=== PATIENT | male | born 1965 | race Caucasian/White ===

== ENCOUNTER 2016-12-04 20:57 | Emergency (ER) | payer OTHER ==
[~2016-12-04] VITALS: Ht 165.1 cm; Wt 102.5 kg
[2016-12-04 21:06] VITALS: Ht 165.1 cm; Wt 102.5 kg
[2016-12-04] MEDS ORDERED: IBUP-1542 PO (22:06)
--- NOTE | 2016-12-04 23:07 | ERA ---
ER Documentation Chief Complaint Date/Time DATE: 12/04/16 TIME: 23:01 Chief Complaint Pt with r knee pain today, no injury. HPI Patient is a 51-year-old male who presents complaining of right knee pain. Patient was at work when he felt himself straining his knee when he was climbing on the machines. Patient noticed the pain again when he at home and since has not abated. Patient has taken ibuprofen with minimal relief. Patient is not on any other remedies to relieve the pain. Patient says the pain is worse with movement and better with rest. Describes a popping sensation at onset. Pt denies weight loss, fevers, nausea, vomiting, diarrhea, constipation, hyperhidrosis, rigors, fatigue, dyspnea, malaise or depression. ROS All systems reviewed and are negative except as per history of present illness. Medications Home Meds Active Scripts Ibuprofen* (Motrin*) 600 Mg Tab, 600 MG PO Q6H Y for PAIN AND OR ELEVATED TEMP, #30 TAB Prov:JUSTYNA JOY PA-C 12/04/16 PMhx/Soc Medical and Surgical Hx: pt denies Medical Hx, pt denies Surgical Hx Hx Alcohol Use: No Hx Substance Use: No Hx Tobacco Use: No Smoking Status: Never smoker Physical Exam Vitals Vital Signs Date Time Temp Pulse Resp B/P Pulse Ox O2 Delivery O2 Flow Rate FiO2 12/04/16 21:06 98.4 102 18 168/97 98 Physical Exam Const: Obese 51-year-old male Head: Atraumatic normocephalic Eyes: Normal Conjunctiva PERRLA and extraocular movements intact bilaterally ENT: Normal External Ears, Nose and Mouth. Neck: Full range of motion..~ No meningismus. Resp: Clear to auscultation bilaterally Cardio: Regular rate and rhythm, no murmurs Abd: Soft, non tender, non distended. Normal bowel sounds Skin: No petechiae or rashes. No skin discoloration in the affected area Back: No midline or flank tenderness Ext: No cyanosis, or edema. Mild pain with resisted flexion of the right knee. Pain is in the posterior aspect of the knee. Pain is 4 out of 10. Neur: Awake and alert Psych: Normal Mood and Affect Procedures/MDM Patient had a negative examination and patient is neurovascularly intact bilaterally. Strength is 2+ bilaterally. DTRs were within normal limits bilaterally. Patient had no palpable cord. At this time I do not suspect a VTE , cellulitis, infectious process, or break of any bone. Patient is ambulating normally. At this time I will discharge the patient with ibuprofen for pain management as well as brace for screening and rice therapy. Advised patient to continue ibuprofen for pain and inflammation and to take 1 day off of work to rest and compress and ice the affected limb. The patient should be working back slowly to normal activities. 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 If pain continues patient should return to the emergency department further evaluation without aggravating his injury. This is been explained to the patient verbally and he has a knowledge. Focal mite and agree with evaluation assessment and plan Departure Diagnosis: Primary Impression: Strain of knee Condition: Stable Patient Instructions: Muscle Strain, Extremity JUSTYNA JOY PA-C Dec 04, 2016 23:07
== END 2016-12-04 22:27 | disposition home or self-care (01) ==
LOC: FTE 20:57
DX: S86.811A Strain of other muscle(s) and tendon(s) at lower leg level, right leg, initial encounter (principal); X50.9XXA Other and unspecified overexertion or strenuous movements or postures, initial encounter; Y92.9 Unspecified place or not applicable
CPT/HCPCS: 99283

== ENCOUNTER 2018-04-09 15:37 | Emergency (ER) | END 2018-04-09 19:54 | disposition home or self-care (01) ==